=== PATIENT | female | born 1975 | race Caucasian/White ===

== ENCOUNTER 2019-02-09 18:42 | Emergency (ER) | payer OTHER ==
[~2019-02-09] VITALS: Ht 165.1 cm; Wt 93.0 kg
[2019-02-09 18:48] VITALS: BP 120/82
[2019-02-09] MEDS ORDERED: ZYRTEC10 M5 PO (18:51)
[2019-02-09] MEDS ORDERED: NEXIUM40 MG PO (18:51)
[2019-02-09 18:55] LABS: URINE BILIRUBIN NEGATIVE (Negative); URINE BLOOD TRACE (Negative); URINE CLARITY CLEAR; URINE COLOR YELLOW; URINE GLUCOSE-RANDOM NEGATIVE (Negative); URINE KETONES NEGATIVE (Negative); URINE LEUKOCYTES-REFLEX NEGATIVE (Negative); URINE NITRITE-REFLEX NEGATIVE (Negative); URINE PROTEIN NEGATIVE (Negative); URINE SPECIFIC GRAVITY <= 1.005 (1.005-1.030); URINE UROBILINOGEN 0.2 E.U./dl (0.2-1.0)
[2019-02-09 19:47] LABS: HEMATOCRIT 40.2 % (37.0-47.0); MCH 32.5 pg (26.0-34.0); MCHC 34.8 g/dL (28.0-37.0); MCV 93.4 fL (80.0-100.0); MPV 7.5 fl. (7.2-11.1); NUCLEATED RBCS 0 /100WBC; PLATELET COUNT* 224 thou/uL (150-400); RDW-CV 12.5 % (10.5-14.5); WBC 7.6 thou/uL (4.0-11.0)
[2019-02-09 20:05] LABS: ABSOLUTE LYMPHOCYTES 0.9 thou/uL (0.8-5.3); ABSOLUTE NEUTROPHILS 6.7 thou/uL (1.6-8.1); ALBUMIN 3.6 g/dL (3.4-5.0); ALKALINE PHOSPHATASE 53 U/L (46-116); ANION GAP 11 mmol/L (7-16); BUN 13 mg/dL (7-18); CALCIUM 8.9 mg/dL (8.5-10.1); CHLORIDE 101 mmol/L (98-107); CO2 24 mmol/L (21-32); CREATININE 0.9 mg/dL (0.6-1.3); GLUCOSE 111 mg/dL (70-99); PLATELET ESTIMATE ADEQUATE; POTASSIUM 3.5 mmol/L (3.5-5.1); SGOT 17 U/L (15-37); SGPT 33 U/L (30-65); SODIUM 136 mmol/L (136-145); TOTAL BILIRUBIN 0.8 mg/dL (<0.1-1.0); TROPONIN-I LEVEL <0.06 ng/mL (<0.06)
--- NOTE | 2019-02-10 12:31 | EKG ---
[place] [address] ELECTROCARDIOGRAM REPORT Name: CHUCKIE VELIZ Room: [facility]#: [id number] Admission: 02/09/19 Attend Phys: Discharge: 02/09/19 Date of : 75 Report #: [id number] THIS REPORT FOR: //name// [facility] ED Test Date: 2019-02-09 Test Time: 18:59:17 Pat Name: CHUCKIE VELIZ Department: Room: Gender: F [employer]: Douglas YOU : 1975 Requested By: Carmen Arroyo Order Number: [id number] MD: Ab Taveras Measurements Intervals [place] Rate: 92 P: 16 WV: 135 QRS: -29 QRSD: 81 T: -2 QT: 357 QTc: 442 Interpretive Statements Sinus rhythm Borderline left axis deviation Low voltage, precordial leads Consider anterior infarct No previous ECG available for comparison Electronically Signed On 02-10-2019 12:31:35 CDT by Ab Taveras [email or web address] <ELECTRONICALLY SIGNED> By: Ab Taveras MD, FAC 02/10/19 1231 [id number] Ab Taveras MD, [facility] /EPI
== END 2019-02-09 19:57 | disposition left against medical advice (07) ==
LOC: M.ERS 18:42
PROVIDERS: Physician Assistant
DX: R10.11 Right upper quadrant pain (principal); R10.31 Right lower quadrant pain; R11.2 Nausea with vomiting, unspecified; F41.9 Anxiety disorder, unspecified; G43.909 Migraine, unspecified, not intractable, without status migrainosus; I10 Essential (primary) hypertension; K21.9 Gastro-esophageal reflux disease without esophagitis; Z86.73 Personal history of transient ischemic attack (TIA), and cerebral infarction without residual deficits; Z88.0 Allergy status to penicillin